=== PATIENT | female | born 1960 | race American Indian/Alaskan Native ===

== ENCOUNTER 2017-10-25 14:17 | Emergency (ER) | payer BC, OTHER ==
[2017-10-25] MEDS ORDERED: SUBLIMAZE IV ONE (15:33)
[2017-10-25] MEDS ORDERED: NACL 0.9% 1000 ML 1,000 ML IV ONE (15:35)
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
[2017-10-25 16:09] LABS: INR 0.97 (0.87-1.13)
--- NOTE | 2017-10-25 16:26 | XRay Report ---
FINAL REPORT EXAM: XR SHOULDER 2+V RT HISTORY: fall/deformity,shoulder pain TECHNIQUE: Frontal and Y-views right shoulder Comparison: None FINDINGS: There is no evidence of fracture or subluxation. The soft tissues are unremarkable. IMPRESSION: 1. No plain film evidence of fracture or subluxation. If further imaging is required, CT or MRI may be helpful.
--- NOTE | 2017-10-25 16:29 | Cat Scan Report ---
FINAL REPORT EXAM: CT HEAD/BRAIN WO CON HISTORY: fall concussion TECHNIQUE: CT of the head was performed without intravenous contrast. PRIORS: None. FINDINGS: The ventricles are normal in shape and position. The ventricles are nondilated. No intracranial hemorrhage, mass, mass effect, midline shift or evidence of acute ischemic infarct. The basilar cisterns are patent. The paranasal sinuses are clear. The extracranial soft tissues demonstrate no abnormality. The calvarium is intact. The orbits are intact. The mastoid air cells are clear. IMPRESSION: No acute intracranial abnormality.
[2017-10-25 16:58] LABS: BUN/Creatinine Ratio 13; Blood Urea Nitrogen 8 mg/dL (7-17); Calcium 9.1 mg/dL (8.4-10.2); Hemolysis Index 79
--- NOTE | 2017-10-25 17:00 | XRay Report ---
FINAL REPORT EXAM: XR FEMUR 2+V LT HISTORY: left leg pain TECHNIQUE: Frontal and lateral views left femur Comparison: X-ray left knee also performed today FINDINGS: There is no evidence of fracture or subluxation. The hip joint is maintained. There is a three-part knee prosthesis in anatomic alignment. There is no evidence of hardware failure. The soft tissues are unremarkable. IMPRESSION: 1. No evidence of fracture, subluxation or hardware failure.
[2017-10-25 17:01] LABS: Hematocrit 38.9 % (30.3-42.9); Hemoglobin 12.5 gm/dl (10.1-14.3); Mean Corpuscular HGB Conc 32 % (30-34); Mean Corpuscular Volume 75 fl (79-97); Platelet Count 302 K/mm3 (140-440); Red Blood Count 5.22 M/mm3 (3.65-5.03); Red Cell Distribution Width 17.9 % (13.2-15.2)
--- NOTE | 2017-10-25 17:01 | XRay Report ---
FINAL REPORT EXAM: XR KNEE 1-2V LT HISTORY: left leg pain TECHNIQUE: Frontal and lateral views left knee Comparison: X-ray left femur also performed today FINDINGS: There is a three-part knee prosthesis in anatomic alignment. There is no evidence of fracture, subluxation or hardware failure. The soft tissues are unremarkable. IMPRESSION: 1. Three-part knee prosthesis. 2. No evidence of fracture, subluxation or hardware failure.
[2017-10-25 17:02] LABS: Mean Corpuscular Hemoglobin 24 pg (28-32)
--- NOTE | 2017-10-25 17:04 | XRay Report ---
FINAL REPORT EXAM: XR ELBOW 2V RT HISTORY: right arm pain ct first TECHNIQUE: Frontal, oblique lateral and oblique views right elbow Comparison: None FINDINGS: There is no definite evidence of fracture or subluxation. However, evaluation of the lateral view is limited by the obliquity of the image. The joint spaces appear to be maintained. The soft tissues are unremarkable. However, evaluation for the presence or absent of an effusion is limited by the obliquity of the lateral view. IMPRESSION: 1. Study somewhat degraded by positioning. 2. No definite evidence of fracture or subluxation. However, subtle abnormalities, to include a joint effusion, could be missed due to obliquity of the lateral view. If further imaging is required, a true lateral view may be helpful.
[2017-10-25 18:01] VITALS: BP 124/73
== END 2017-10-25 19:09 | disposition home or self-care (01) ==
LOC: ED 14:17
DX: M25.511 Pain in right shoulder (principal); R55 Syncope and collapse; M13.862 Other specified arthritis, left knee; G43.909 Migraine, unspecified, not intractable, without status migrainosus
CPT/HCPCS: 36415; 70450; 73030; 73070; 73552; 73560; 80048; 82550; 83735; 84443; 84484; 85027; 85610; 93005; 93010; 96361; 96374; 99285; J3010; J7030